=== PATIENT | male | born 1955 | race Two or more races ===

== ENCOUNTER 2018-04-30 19:17 | Inpatient (IN) | payer OTHER ==
[2018-04-30] MEDS ORDERED: ACETAMINOPHEN 325 MG TAB PO (20:30)
[2018-04-30] MEDS ORDERED: morphine 2 MG INJ IV (20:30)
[2018-04-30] MEDS ORDERED: GLUCAGON 1 MG INJ IM (21:00)
[2018-04-30] MEDS: INSULIN ASPART [NOVOLOG] 3 ML PEN SC (21:00)
[2018-04-30] MEDS ORDERED: GLUCOSE GEL 15 GRAM TUBE PO ×2 (21:00)
[2018-04-30] MEDS ORDERED: GLUCOSE GEL 15 GRAM TUBE BUCCAL (21:00)
[2018-04-30] MEDS ORDERED: DEXTROSE 50% 50 ML SYRINGE IV ×2 (21:00)
[2018-04-30] MEDS: ZOLPIDEM 5 MG TAB PO (22:31)
[2018-05-01 01:06] LABS: ADD MAN DIFF? NO
[2018-05-01 01:09] LABS: BASOPHIL # 0.1 10^3/ul (0.0-0.1); BASOPHILS % 0.8 % (0.0-2.0); EOSINOPHILS # 0.3 10^3/ul (0.0-0.5); EOSINOPHILS % 4.2 % (0.0-7.0); HEMATOCRIT 39.1 % (42.0-52.0); HEMOGLOBIN 13.2 g/dl (14.0-18.0); LYMPHOCYTES # 3.4 10^3/ul (0.8-2.9); LYMPHOCYTES % 46.1 % (15.0-51.0); MEAN CORPUSCULAR HGB CONC 33.8 g/dl (32.0-37.0); MEAN CORPUSCULAR VOLUME 94.9 fl (82.0-101.0); MEAN PLATELET VOLUME 10.5 fl (7.4-10.4); MONOCYTE # 0.7 10^3/ul (0.3-0.9); MONOCYTES % 9.8 % (0.0-11.0); NEUTROPHIL # 2.9 10^3/ul (1.6-7.5); NEUTROPHILS % 38.7 % (39.0-77.0); PLATELET COUNT 206 10^3/UL (140-415); RED BLOOD COUNT 4.12 10^6/ul (4.70-6.10); RED CELL DISTRIBUTION WIDTH 11.9 % (11.5-14.5)
[2018-05-01 01:09] LABS: WHITE BLOOD COUNT 7.5 10^3/ul (4.8-10.8)
[2018-05-01 01:44] LABS: ALANINE AMINOTRANSFERASE 33 IU/L (13-69); ALBUMIN 3.1 g/dl (3.3-4.9); ALBUMIN/GLOBULIN RATIO 1.19; ALKALINE PHOSPHATASE 67 IU/L (42-121); ANION GAP 9 (8-16); ASPARTATE AMINO TRANSFERASE 18 IU/L (15-46); BILIRUBIN,INDIRECT 0.1 mg/dl (0-1.1); BILIRUBIN,TOTAL 0.1 mg/dl (0.2-1.3); BLOOD UREA NITROGEN 15 mg/dl (7-20); CALCIUM 8.7 mg/dl (8.4-10.2); CARBON DIOXIDE 24 mmol/L (21-31); CHLORIDE 110 mmol/L (97-110); CREATININE 1.01 mg/dl (0.61-1.24); GLUCOSE 142 mg/dl (70-220); MAGNESIUM 1.7 mg/dl (1.7-2.5); POTASSIUM 3.7 mmol/L (3.5-5.1); SODIUM 139 mmol/L (135-144); TOTAL PROTEIN 5.7 g/dl (6.1-8.1)
[2018-05-01] MEDS: ACCU-CHEK XX (02:00)
[2018-05-01] MEDS: PANTOPRAZOLE (EC) 40 MG TAB PO (05:40)
[2018-05-01] MEDS: INSULIN ASPART [NOVOLOG] 3 ML PEN SC ×4 (07:55→21:00)
[2018-05-01] MEDS: MAGNESIUM OXIDE 400 MG TAB PO (08:30)
[2018-05-01] MEDS: BUPROPION (XL) 150 MG TAB PO (08:30)
[2018-05-01] MEDS: ESCITALOPRAM 10 MG TAB PO (08:30)
[2018-05-01] MEDS: FLUTICASONE 0.05% 16 GM NAS SPRAY NASAL (08:30)
[2018-05-01] MEDS: metFORMIN 500 MG TAB PO ×3 (08:30→17:03)
[2018-05-01] MEDS ORDERED: BECLOMETHASONE DIP NASAL (09:00)
[2018-05-01] MEDS ORDERED: NON-FORMULARY/PATIENT OWN MED (Pravastatin Sodium 20 MG) PO (09:00)
[2018-05-01 13:27] LABS: OCCULT BLOOD STOOL POSITIVE (NEGATIVE)
[2018-05-01] MEDS: BISACODYL (EC) 5 MG TAB PO (15:00)
[2018-05-01] MEDS: MAGNESIUM CITRATE 300 ML BTL PO (17:04)
[2018-05-01] MEDS: POLYETHYLENE GLYCOL 3350 119 GM POWDER PO (17:42)
[2018-05-01] MEDS: MONTELUKAST 10 MG TAB PO (21:04)
[2018-05-01] MEDS: ATORVASTATIN 10 MG TAB PO (21:05)
[2018-05-01] MEDS: MIRTAZAPINE 15 MG TAB PO (21:05)
[2018-05-01] MEDS: FINASTERIDE 5 MG TAB PO (21:05)
[2018-05-02] MEDS: ACCU-CHEK XX (02:00)
[2018-05-02] MEDS: PANTOPRAZOLE (EC) 40 MG TAB PO (05:16)
[2018-05-02] MEDS: POLYETHYLENE GLYCOL 3350 119 GM POWDER PO (05:16)
[2018-05-02] MEDS: metFORMIN 500 MG TAB PO ×3 (07:55→18:14)
[2018-05-02] MEDS: INSULIN ASPART [NOVOLOG] 3 ML PEN SC ×4 (07:55→21:00)
[2018-05-02] MEDS: BUPROPION (XL) 150 MG TAB PO (08:19)
[2018-05-02] MEDS: ESCITALOPRAM 10 MG TAB PO (08:20)
[2018-05-02] MEDS: FLUTICASONE 0.05% 16 GM NAS SPRAY NASAL (08:20)
[2018-05-02] MEDS: BISACODYL (EC) 5 MG TAB PO (08:20)
[2018-05-02] MEDS: MAGNESIUM OXIDE 400 MG TAB PO (08:20)
[2018-05-02 13:57] LABS: ADD MAN DIFF? NO
[2018-05-02 13:59] LABS: WHITE BLOOD COUNT 7.3 10^3/ul (4.8-10.8)
[2018-05-02 13:59] LABS: BASOPHIL # 0.1 10^3/ul (0.0-0.1); BASOPHILS % 0.7 % (0.0-2.0); EOSINOPHILS # 0.3 10^3/ul (0.0-0.5); EOSINOPHILS % 3.6 % (0.0-7.0); HEMATOCRIT 43.8 % (42.0-52.0); LYMPHOCYTES # 2.8 10^3/ul (0.8-2.9); LYMPHOCYTES % 38.3 % (15.0-51.0); MEAN CORPUSCULAR HEMOGLOBIN 31.9 pg (29.0-33.0); MEAN CORPUSCULAR HGB CONC 34.2 g/dl (32.0-37.0); MEAN CORPUSCULAR VOLUME 93.2 fl (82.0-101.0); MEAN PLATELET VOLUME 10.3 fl (7.4-10.4); MONOCYTE # 0.6 10^3/ul (0.3-0.9); MONOCYTES % 8.2 % (0.0-11.0); NEUTROPHIL # 3.6 10^3/ul (1.6-7.5); NEUTROPHILS % 48.9 % (39.0-77.0); PLATELET COUNT 241 10^3/UL (140-415); RED CELL DISTRIBUTION WIDTH 11.9 % (11.5-14.5)
[2018-05-02] MEDS: PROPOFOL 20 ML ×2 (15:08→15:57)
[2018-05-02] MEDS ORDERED: FENTAnyl 50 MCG/ML VIAL IV ×3 (15:30)
[2018-05-02] MEDS ORDERED: ONDANSETRON 4 MG INJ IV (15:30)
[2018-05-02] MEDS ORDERED: METOCLOPRAMIDE 10 MG INJ IV (15:30)
[2018-05-02] MEDS ORDERED: DIPHENHYDRAMINE 50 MG INJ IV (15:30)
[2018-05-02] MEDS ORDERED: LABETALOL HCL 20MG INJ IV (15:30)
[2018-05-02] MEDS ORDERED: EPHEDrine SULFATE 50 MG/5 ML SYG IV (15:30)
[2018-05-02] MEDS ORDERED: hydrALAzine 20 MG INJ IV (15:30)
[2018-05-02] MEDS ORDERED: MEPERIDINE 25 MG INJ IV (15:30)
[2018-05-02] MEDS ORDERED: MIDAZOLAM 1 MG/ML 2 ML INJ IV (15:30)
[2018-05-02] MEDS: MONTELUKAST 10 MG TAB PO (20:30)
[2018-05-02] MEDS: ATORVASTATIN 10 MG TAB PO (20:30)
[2018-05-02] MEDS: MIRTAZAPINE 15 MG TAB PO (20:30)
[2018-05-02] MEDS: FINASTERIDE 5 MG TAB PO (20:31)
[2018-05-02] MEDS: morphine LIQ (10 MG/5 ML) CUP PO (20:33)
[2018-05-03] MEDS: ALPRAZOLAM 0.25 MG TAB PO (00:41)
[2018-05-03] MEDS: ACCU-CHEK XX (02:00)
[2018-05-03] MEDS: PANTOPRAZOLE (EC) 40 MG TAB PO (05:58)
[2018-05-03 06:22] LABS: ADD MAN DIFF? NO
[2018-05-03 06:36] LABS: WHITE BLOOD COUNT 8.5 10^3/ul (4.8-10.8)
[2018-05-03 06:36] LABS: BASOPHIL # 0.1 10^3/ul (0.0-0.1); BASOPHILS % 0.7 % (0.0-2.0); EOSINOPHILS # 0.4 10^3/ul (0.0-0.5); EOSINOPHILS % 4.6 % (0.0-7.0); HEMATOCRIT 43.7 % (42.0-52.0); HEMOGLOBIN 14.6 g/dl (14.0-18.0); LYMPHOCYTES # 3.5 10^3/ul (0.8-2.9); LYMPHOCYTES % 40.4 % (15.0-51.0); MEAN CORPUSCULAR HEMOGLOBIN 31.3 pg (29.0-33.0); MEAN CORPUSCULAR HGB CONC 33.4 g/dl (32.0-37.0); MEAN CORPUSCULAR VOLUME 93.8 fl (82.0-101.0); MEAN PLATELET VOLUME 10.3 fl (7.4-10.4); MONOCYTE # 0.9 10^3/ul (0.3-0.9); MONOCYTES % 10.5 % (0.0-11.0); NEUTROPHIL # 3.7 10^3/ul (1.6-7.5); NEUTROPHILS % 43.4 % (39.0-77.0); PLATELET COUNT 258 10^3/UL (140-415); RED BLOOD COUNT 4.66 10^6/ul (4.70-6.10); RED CELL DISTRIBUTION WIDTH 11.9 % (11.5-14.5)
[2018-05-03 07:08] LABS: ANION GAP 12 (8-16); BLOOD UREA NITROGEN 9 mg/dl (7-20); CALCIUM 9.2 mg/dl (8.4-10.2); CARBON DIOXIDE 24 mmol/L (21-31); CHLORIDE 108 mmol/L (97-110); CREATININE 1.08 mg/dl (0.61-1.24); GLUCOSE 126 mg/dl (70-220); POTASSIUM 3.7 mmol/L (3.5-5.1)
[2018-05-03 07:33] LABS: SODIUM 140 mmol/L (135-144)
[2018-05-03] MEDS: INSULIN ASPART [NOVOLOG] 3 ML PEN SC ×2 (07:55→11:50)
[2018-05-03] MEDS: metFORMIN 500 MG TAB PO ×2 (08:05→12:16)
[2018-05-03] MEDS: ESCITALOPRAM 10 MG TAB PO (08:57)
[2018-05-03] MEDS: FLUTICASONE 0.05% 16 GM NAS SPRAY NASAL (08:57)
[2018-05-03] MEDS: BUPROPION (XL) 150 MG TAB PO (08:57)
[2018-05-03] MEDS: MAGNESIUM OXIDE 400 MG TAB PO (08:58)
== END 2018-05-03 13:20 | disposition home or self-care (01) | DRG 395 ==
LOC: TEL 05-01 03:15
PROVIDERS: Internal Medicine
PROC: 0DB68ZX Excision of Stomach, Via Natural or Artificial Opening Endoscopic, Diagnostic (ICD-10-PCS; principal; 2018-05-02 15:00)
PROC: 0DBK8ZX Excision of Ascending Colon, Via Natural or Artificial Opening Endoscopic, Diagnostic (ICD-10-PCS; 2018-05-02 15:00)
PROC: 0DBN8ZX Excision of Sigmoid Colon, Via Natural or Artificial Opening Endoscopic, Diagnostic (ICD-10-PCS; 2018-05-02 15:00)
PROC: 0DBM8ZX Excision of Descending Colon, Via Natural or Artificial Opening Endoscopic, Diagnostic (ICD-10-PCS; 2018-05-02 15:00)
DX: K64.0 First degree hemorrhoids (principal); K76.0 Fatty (change of) liver, not elsewhere classified; I10 Essential (primary) hypertension; K29.70 Gastritis, unspecified, without bleeding; D12.2 Benign neoplasm of ascending colon; D12.4 Benign neoplasm of descending colon; D12.5 Benign neoplasm of sigmoid colon; K57.30 Diverticulosis of large intestine without perforation or abscess without bleeding; E11.9 Type 2 diabetes mellitus without complications; K21.9 Gastro-esophageal reflux disease without esophagitis; F32.9 Major depressive disorder, single episode, unspecified; E78.5 Hyperlipidemia, unspecified; R12 Heartburn; J45.909 Unspecified asthma, uncomplicated; Z79.4 Long term (current) use of insulin
CPT/HCPCS: 80048; 80053; 82270; 82962; 83735; 84100; 85025; 88305; 88312